=== PATIENT | male | born 1970 ===

== ENCOUNTER 2024-11-26 07:32 | Outpatient (REF) | payer BC, SELFPAY ==
--- OUTSIDE RECORDS SUMMARY | 2024-11-26 07:42 | XMS_ITS | Continuity of Care Document ---
Author Organization [employer] [facility] [employer] Address [address] [place] [address] Phone Care Team Providers Care User Experience Developer Name Role Phone Unavailable Unavailable Unavailable Allergies, [...] Location Reason(s) For Visit Diagnoses Date Provider [facility], [address], [place], [place], [id number], tel:[phone] [facility] No Information No Information [facility], [address], [place], [place], [id number], [place] tel:[phone] [facility] No Information No Information [facility], [address], [place], [place], [id number], [place] tel:[phone] [facility] No Information Bertrand Feliz. [address] [facility], [place], [address], . tel:[phone] [facility], [address], [place], [place], [id number], tel:[phone] [facility] No Information Luis Sandi. [facility], [place], [place], [id number], . tel:[phone] Family History Family Member Type Diagnosis Age At Onset No Information Payers Payer name Insurance type Covered alliance party ID jessica felipe(s) [facility] [id number] Social History Type Description Quantity Date Captured Comments Sex Male Smoking Status No Information Chief Complaint And Reason For Visit No Information History Of Present Illness Encounter Date Complaint History Of Prese nt Illness No Information Instructions Date Instruction Additional Infor mation No Information Assessments Type Assessment Date No Information
--- OUTSIDE RECORDS SUMMARY | 2024-11-26 07:42 | XMS_ITS | Data Portability ---
Author Organization [facility] Service Address [address] [place] [address] Assessment Encounter Date Assessment Date Assessment LastModified by Organization Details LastModified Time 04/11/2024 04/11/2024 [address] [place] [id number] (CARDIOLOGY TECH) MDM MODERATE MUST MEET 2 OUT OF 3 ELEMENTS: PROBLEMS, DATA OR RISK ELEMENT 1: PROBLEMS ADDRESSED 1 OR MORE CHRONIC ILLNESS WITH EXACERBATION OR 2 OR MORE STABLE CHRONIC ILLNESSES OR 1 UNDIAGNOSED NEW PROBLEM OR 1 ACUTE ILLNESS W/SYMPTOMS OR 1 ACUTE COMPLICATED INJURY ELEMENT 2: DATA MUST MEET 1 OF 3 CATEGORIES CATEGORY 1: REVIEW OF PRIOR EXTERNAL NOTES, REVIEW OF RESULTS, ORDERING OF EACH TEST, ASSESSMENT REQUIRING INDEPENDENT HISTORIAN OR CATEGORY 2: INDEPENDENT INTERPRETATION OF TESTS BY ANOTHER PHYSICIAN OR SPECIALIST OR CATEGORY 3: DISCUSSION OF MGT OR TEST INTERPRETATION W/EXTERNAL PHYSICIAN OR SPECIALIST ELEMENT 3: RISK RISK OF COMPLICATIONS AND/OR MORBIDITY OR MORTALITY OF PATIENT MANAGEMENT PROVIDER MUST THOROUGHLY DOCUMENT EACH ELEMENT THAT IS COVERED Not available 04/11/2024 14:40:42 Plan of Treatment Reminders Order Date Submit Date Provider Last Modified By Organization Details Last Modified Time Details Appointments FOLLOW UP 15 2024 11:30A M DR BYRNES Not available Not available Not available Lab CMP, serum or plasma [address], [address], 07/14/2022 17:19:19 lipid panel, blood 2021 022 [facility] [place], [address] [place] [address], [id number], 07/14/2022 17:19:19 CBC w/ auto diff 2021 022 [facility] [place] [address] [place] [address], [address], 07/14/2022 17:19:19 PSA, serum or plasma 2021 022 [facility] [place] [address] [place] [address], [id number], 07/14/2022 17:19:19 vitamin D, 25-hydrox y, total, serum 2021 022 [facility] [place], [address] [place] [address], [address], 07/11/2022 12:15:22 TSH, serum or plasma 2021 022 [facility] [place] [address] [place] [address], [address], 07/14/2022 17:19:19 CMP, serum or plasma 2022 023 [facility] [place] [address] [place] [address], [address], 02/02/2023 11:04:38 TSH, serum or plasma 2022 023 [facility] [place], [address] [place] [address], [address], 01/26/2023 11:58:06 CMP, serum or plasma 2022 023 [facility] [place] [address] [place] [address], [address], 07/25/2023 12:11:11 TSH + T4, serum 2022 023 [facility] [place] [address] [place] [address], [address], 07/25/2023 12:11:11 TSH, serum or plasma 2022 023 [facility] [place], [address] [place], [address], 05/07/2023 14:25:21 lipid panel, blood 2022 023 [facility] [place], [address] [place], [address], 05/07/2023 14:25:21 Referral None recorded. Procedures None recorded. Surgeries None recorded. Imaging CT, heart, w/o contrast, w/ coronary calcium score - NOT REQUIRED Procedure codes: 79390Iiat Reference #: [id number] 9Resoluti on: Completed on 4 at 02:15 pm. Call ref #[id number] 69. 2023 024 [facility], [address] [place] [address], [id number], 04/21/2024 09:00:52 Medication Orders None recorded. Patient TargetsNo targets recorded. Patient Instructions Encounter Date Encounter Id Patient Instructions Last Modified By Organization Details Last Modified Time 05/07/2023 [id number] high cholesterol : care instructions Not available 05/07/2023 14:23:21 04/11/2024 [id number] high cholesterol : care instructions Not available 04/11/2024 14:42:32 hypothyroidism: care instructions Not available 04/11/2024 14:42:32 Reason for Referral None Reported. Results Created Date Observation Date Name Description Value Unit Range Abnormal Flag Note LastModifiedBy Organization Detail LastModifiedTime 05/13/20 24 05/13/2024 CT, heart , w/o contr ast, w/ coron phani calci um score No observ ation record ed. [facility] [address] [facility] [address], [place], [address], 05/14/2024 11:57:10 05/22/20 24 2024 exerc ise stres s test No observ ation record ed. [facility] [address], [place], [address], 05/22/2024 18:45:36 07/16/20 24 07/16/2024 pharm acolo gic nucle ar stres s test No observ ation record ed. [email or web address] [address], [place], [address], 07/18/2024 09:08:30 Result Notes None recorded. Problems Name Problem SNOMED Code Status Onset Date Resolution Date Notes Provider Name and Address Organization Details Recorded Time Systolic murmur 79887899 Active 2020 Not Available [facility] 3 13:46:50 Hyperten sive disorder 36432942 Completed 202004/11/2024 Art Byrnes DO [address] [place] [address], [address], [facility] 4 14:41:04 Hypothyr oidism 86436914 Active 2020 Not Available [facility] 3 13:46:50 Hyperlip idemia 86909198 Active 2020 Not Available [facility] 3 13:46:50 Hernia of abdomina l cavity 32216317 Active 2020 Not Available [facility] 3 13:46:50 Multiple lipomata 275631009 Completed 202004/11/2024 Art Byrnes, [address] [place], [address], [facility] 4 14:41:32 COVID-19 094085937 Active 2020 Not Available [facility] 3 13:46:50 Sciatica 86417516 Active 2020 Not Available [facility] 3 13:46:50 Liver function tests outside referenc e range 306774926 Completed 202004/11/2024 Art Byrnes DO [address] [place], [address], [facility] 4 14:41:11 Dyspnea 239456261 Active 2020 Not Available [facility] 3 13:46:50 Tinnitus 07504108 Active 2020 Not Available [facility] 3 13:46:50 Steatosi s of liver 395037376 Completed 202004/11/2024 Art Byrnes, DO [address] [place] [address], [address], [facility] 4 14:41:20 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 Procedures Surgical History Date Name Laterality Status Provider Name and Address Organization Details Recorded Time 9 Colonoscopy completed [facility] 03/21/2021 10:06:46 Knee arthroscopy/lucy carla completed [facility] 03/21/2021 10:08:12 Imaging Results Imaging Date Name Status LastModified by Organization Details LastModified Time 05/13/2024 CT, heart, w/o contrast, w/ coronary calcium score completed [facility] [address] [facility] [address], [place], [address], 05/14/2024 11:57:10 2024 exercise stress test completed [address] [facility] [address], [place], [address], 05/22/2024 18:45:36 07/16/2024 pharmacologic nuclear stress test completed [facility] [address] [facility], [place], [address], 07/18/2024 09:08:30 Procedure Notes None recorded. Medical Equipment None Reported. Allergies Allergen ID Allergen Name Allergen Category Reaction Reaction Severity Criticality Documentation Date Start Date Code Code System Note Provider Name and Address Organization Details Recorded Time 4560 poppy seed oil food anaphylax is Not available Not available 03/23/2021 70674 99 RxNorm Art Byrnes, DO [address] [place], [address], [facility] 11:21:17 4561 macadamia oil food anaphylax is Not available Not available 03/23/2021 42759 56 RxNorm Art Byrnes, DO [address] [place], [address], [facility] 11:21:34 Medications Name Sig Start Date Stop Date Status Note LastModified by Organization Details LastModified Time atorvastati n 80 mg tablet Take 1 tablet every day by oral route for 90 days. 2021 active Not Available Not Available Not Avai lable metoprolol tartrate 100 mg tablet TAKE 1 TABLET BY MOUTH TWICE A DAY 05/07 completed Not Available Not Available Not Available atenolol 25 mg tablet TAKE 1 TABLET EVERY DAY BY ORAL ROUTE 02/13 completed Not Available Not Available Not Available chlorthalid one 25 mg tablet Take 1 tablet every day by oral route for 90 days. 04/04 completed Not Available Not Available Not Available spironolact one 25 mg tablet TAKE 1 TABLET BY MOUTH EVERY DAY active Not Available Not Available No t Available levothyroxi ne 75 mcg tablet Take 1 tablet(s) every day by oral route. 2024 active Not Available Not Available Not Avai lable amlodipine 10 mg tablet TAKE 1 TABLET BY MOUTH EVERY DAY 05/07 completed Not Available Not Available Not Available omeprazole 20 mg capsule,del ayed release TAKE 1 CAPSULE BY MOUTH EVERY DAY 2023 active Not Available Not Available Not Avai lable Baby Aspirin 81 mg chewable tablet Chew 1 tablet every day by oral route. active Not Available Not Available No t Available lisinopril 40 mg tablet TAKE 1 TABLET BY MOUTH EVERY DAY 05/07 completed Not Available Not Available Not Available doxycycline hyclate 100 mg tablet Take 1 tablet twice a day by oral route for 10 days. 02/13 completed Not Available Not Available Not Available spironolact one 50 mg tablet TAKE 1 TABLET BY MOUTH TWICE A DAY 05/07 completed Not Available Not Available Not Available Vitamin D 50,000 unit capsule Take 1 capsule every week by oral route. 01/26 completed Not Available Not Available Not Available ProAir HFA 90 mcg/actuati on aerosol inhaler Inhale 2 puffs every 4 hours by inhalatio n route as needed. 04/11 completed Not Available Not Available Not Available Vitals Date Recorded Body height Systolic blood pressure Diastolic blood pressure Systolic blood pressure Diastolic blood pressure Provider Name and Address Organization Details Last Updated DateTime 1 175.26 cm 140 mm[Hg] 82 mm[Hg] 136 mm[Hg] 80 mm[Hg] Sugey Hurd [facility] 1 11:04:44 Date Recorded Body height Body mass index (BMI) Body weight Heart rate Oxygen saturation Oxygen saturation in Arterial blood by Pulse oximetry Systolic blood pressure Diastolic blood pressure Provider Name and Address Organization Details Last Updated DateTime 2 176.53 cm 35.3 kg/m2 829621. 43 g 61 /min 99 % 99 % 118 mm[Hg] 70 mm[Hg] Miranda Fuller [facility] 2 11:56:42 Date Recorded Body height Body mass index (BMI) Body weight Heart rate Oxygen saturation Oxygen saturation in Arterial blood by Pulse oximetry Systolic blood pressure Diastolic blood pressure Provider Name and Address Organization Details Last Updated DateTime 3 176.53 cm 35.7 kg/m2 459925. 85 g 65 /min 95 % 95 % 138 mm[Hg] 92 mm[Hg] Art Byrnes, DO [address] [place], [address] , [facility] 3 11:21:49 Date Recorded Body height Body mass index (BMI) Body weight Heart rate Oxygen saturation Oxygen saturation in Arterial blood by Pulse oximetry Systolic blood pressure Diastolic blood pressure Provider Name and Address Organization Details Last Updated DateTime 3 176.53 cm 29.5 kg/m2 67554.2 5 g 79 /min 97 % 97 % 110 mm[Hg] 80 mm[Hg] Aliza Oneill [facility] 3 13:45:02 Date Recorded Body height Body mass index (BMI) Body weight Heart rate Oxygen saturation Oxygen saturation in Arterial blood by Pulse oximetry Systolic blood pressure Diastolic blood pressure Provider Name and Address Organization Details Last Updated DateTime 4 176.53 cm 27.2 kg/m2 89205.4 9 g 65 /min 97 % 97 % 116 mm[Hg] 70 mm[Hg] Laura Randall [facility] 4 14:20:36 Social History Question Answer Notes LastModified by Organizat ion Details LastModified Time Tobacco Smoking Status [facility]/21/2021 10:09:22 What Is Your Level Of Alcohol Consumption? Occasional Weekend- Social Drinker Information not available 03/23/2021 What Is Your Level Of Caffeine Consumption? Moderate Information not available 03/23/2021 What Was The Date Of Your Most Recent Tobacco Screening? 05/07/2023 [email or web address] Information not available 05/07/2023 Do You Use Any Illicit Or Recreational Drugs? No [email or web address] Information not available 07/11/2022 Do You Or Have You Ever Used Any Other Forms Of Tobacco Or Nicotine? No [email or web address] Information not available 05/07/2023 Sex: Unknown Functional Status Question Answer Note LastModified by Organization D etails LastModified Time What is your exercise level? Moderate Information not available 03/23/2021 Mental Status None recorded. Family History Relationship Description Onset Age of this Age Resolved Age Notes LastModified by Organization Details LastModified Time Father Asthma [email or web address] Not available 0 03/21/2021 10:07:01 Father Acute stroke [email or web address] Not a vailable 04/11/2024 14:04:57 Father Hypercholest erolemia tbalicki Not available 2020 10:10:43 Father Transient gluten intolerance [email or web address] Not available 0 04/11/2024 14:04:57 Father Stented coronary artery [email or web address] Not available 14:04:58 Maternal Grandfather Diabetes mellitus [email or web address] Not available 2020 10:07:24 Mother Hypertensive disorder [email or web address] Not available 2020 10:07:40 Brother Transient gluten intolerance [email or web address] Not available 0 04/11/2024 14:04:58 Maternal Grandmother Hypercholest erolemia tbalicki Not available 2020 10:11:52 Paternal Grandfather Myocardial infarction [email or web address] Not available 03/21 10:12:14 Paternal Grandfather Diabetes mellitus [email or web address] Not available 2020 10:12:24 Medical History No medical history recorded. Immunizations Vaccine Type Date Status Note Provider Nam e and Address Organization Details Recorded Time zoster recombinant 1 completed [facility]hya [facility] 05/07/2023 13:38:23 COVID-19, mRNA, LNP-S, PF, 30 mcg/0.3 mL dose 1 completed Sandhya [facility] 05/07/2023 13:38:23 zoster, unspecified formulation 2 completed Sandhya [facility] 05/07/2023 13:38:23 COVID-19, mRNA, LNP-S, PF, 30 mcg/0.3 mL dose 2 completed Sandhya [facility] 05/07/2023 13:38:23 Influenza, split virus, quadrivalent, preservative 2 completed Sandhya [facility] 05/07/2023 13:38:22 [facility]ap 4 [facility] 09:00:50 Hep B, unspecified formulation 4 completed Stephenluana Byrnes null, [facility] 02/11/2024 09:01:03 Tdap 5 completed Sugey Vannessa null, [facility] 03/21/2021 10:05:02 zoster recombinant 9 completed Sandhyasa Velazquez dkaota, [facility] 05/07/2023 13:38:22 Past Encounters Encounter ID Performer Location Encounter Start Date Encounter Closed Date Diagnosis/Indication Diagnosis SNOMED-CT Code Diagnosis ICD10 Code Diagnosis Note [id number] [facility] [address] [facility] [address] 03/23/2021 11:07:42 03/23/2021 11:55:06 Essential hypertension 39017830 I10 will need renew of his meds noted that he does snore but does not wish to have sleep study Hypothyroidism 33165167 E03.9 thyroid lab is needed Hyperlipidemia 93352761 E78.5 willl get lipid profile [id number] [facility] [address] [facility],[place] [address] 07/20/2021 10:25:41 07/20/2021 11:50:[id number] [facility] [address] [facility],[place] [address] 07/11/2022 11:50:44 07/11/2022 12:57:35 Active or passive immunization 002360489 Z23 utd Adult heal th examination 065059819 Z00.00 doing wellexerci sing daily will need for fbw [id number] [facility] [address] [facility] [address],[place] [address] 01/26/2023 11:10:46 01/26/2023 14:09:35 Hypertensive disorder 43538982 I10 bp remains uncontroll ed will refer Hypothyroidism 74074027 E03.9 thyroid lab is needed Liver func tion tests outside reference range 269637587 R94.[id number] [facility] [address] [facility],[place] [address] 05/07/2023 13:38:07 05/07/2023 14:29:12 Hyperlipidemia 52101433 E78.5 will get lipid profile Liver func tion tests outside reference range 981597894 R94.5 now nowrmal and stable Hypertensive disorder 38 990480 I10 doing fantastic now off alll bp meds and feels good will stop the chlorthali done Hypothyroidism 36744629 E03.9 thyroid lab is needed Liver enzy mes level above reference range 866338657 R74.01 gloria rechk in the fall [id number] Art Andrews Abdiazizefra [facility] [address] [facility],[place] [address] 04/11/2024 14:03:24 04/11/2024 14:48:46 Depression screening 937175654 Z13.31 SCREENING NEGATIVE Hypothyroidism 48195317 E03.9 thyroid lab is needed Hyperlipidemia 22761874 E78.5 will get lipid profile Health Concerns Section Related Observation LastModified by Organization Detai ls LastModified Time None Recorded Concern Status LastModified by Organization Details LastModified Time None Recorded Advance Directives Directive None Recorded Payers Encounter Date Sequence Insurance Name Policy Number Policy Plaza Covered Member ID Plaza Member ID Guarantor Name 07/20/2021 1 [employer] Neel Colin [id number] Neel Colin 07/11/2022 1 [employer] Neel Colin [id number] Neel Colin 01/26/2023 1 [employer] Neel Colin [id number] Neel Colin 05/07/2023 1 [employer] Neel Colin [id number] Neel Colin 04/11/2024 1 [place] Neel Colin [id number] Neel Colin Notes Date Note Type Note Provider Name and Address Organization Details Recorded Time 2 text/htm l Annual WellnessReported bypatient.Diet and Nutrition:healthy diet Fracture Risk:no history of fractures; no recent explained fracture; no sudden unexplained fractures; no previous musculoskeletal injuries Physical Activity:exercises on a regular basis; recent increase in physical activity; good physical condition Additional Lifestyle Factors:no tobacco use; no alcohol intake; stopped drinking alcohol Depression Risk:never feels sad, empty, or tearful; no loss of interest in activities; no significant changes in weight; no sleep disturbances or insomnia; no agitation; no loss of energy; no feelings of worthlessness or guilt; no thoughts of suicide; no history of depression; no history of mood disorders Hearing:no loss of hearing Vision:no vision problems here for his cpe doing well Art ByrnesDO [address] [place] [address], [address], [facility] 07/11/2022 12:14:16 3 text/htm l Hypertension F/UReported bypatient.Medications:clifford rodriguez medications as directed; no side effects from medication Lifestyle:regular exercise; limiting/avoiding salt; compliant with low salt diet Associated Symptoms:no dizziness; no lightheadedness; no chest pain; no shortness of breath; no palpitations; no edema; no calf pain with exertion; no headache here for rechk doing well overallstates he is active having a hard time losing wgthe is exercising a lot and eating a better dietrelates despite all this he is not dropping any wgtdiscussed this in detailnoted most recent lab showed a glucose at 124 fasting Art ByrnesDO [address] [place] [address], [address], [facility] 01/26/2023 11:59:13 3 text/htm l has lost about 50lbs in the [facility] etoh calorie count works outliver enzymes have now normalizedleg swelling is gone Art ByrnesDO [address] [place] [address], [address], [facility] 05/07/2023 14:24:16 4 text/htm l Care Management - HypertensionReported bypatient.Notes:no more meds here for radha has lost a total of 70 lbs doing well working outeating path intelligence ccp n o sob Art Andrews DO George [address] [place] [address], [address], [facility] 04/11/2024 14:44:20
--- OUTSIDE RECORDS SUMMARY | 2024-11-26 07:42 | XMS_ITS | Encounter Summary ---
Author Organization [facility], Address [address] [place] [address] Phone Care Team Providers Care Decorator Consultant Name Role Phone Art Vazquez DO Primary Care Provider [phone] Reason for Visit * Reason Comments Med Refill Encounter Details Date Type Department Care Team (Late st Contact Info) Description 02/11/2022 Refill [facility] [address] [facility] [address] [place] [address] Santos Recinos MD [address] [place] [address] Social History Tobacco Use Types Packs/Day Years Used Date Smoking Tobacco: Never Sex and Gender Information Value Date Recorded Sex Assigned at Not on file Legal Sex Male 4:08 PM EDT Gender Identity Not on file Sexual Orientation Not on file documented as of this encounter Plan of Treatment Not on file documented as of this encounter Visit Diagnoses Not on filedocumented in this encounter Care Teams Decorator Consultant Relationship Specialty Start Date End Date Art Vazquez DO [address] [address] PCP - General Internal Medicine 08/01/21 documented as of this encounter
--- OUTSIDE RECORDS SUMMARY | 2024-11-26 07:42 | XMS_ITS | Encounter Summary ---
Author Organization [facility] [place], Address [address] [place] [address] Phone Care Team Providers Care President [employer] Name Role Phone Art Vazquez DO Primary Care Provider [phone] Reason for Visit * Reason Comments Med Refill Encounter Details Date Type Department Care Team (Late st Contact Info) Description 08/02/2022 Refill [facility] [address] [place] [address] Santos Recinos MD [address] [place] [place] [phone] Social History Tobacco Use Types Packs/Day Years [...] on filedocumented in this encounter Care Teams President [employer] Relationship Specialty Start Date End Date Art Vazquez DO [address] [facility] [place] [address] PCP - General Internal Medicine 08/01/21 documented as of this encounter
[2024-11-26 14:41] LABS: Alanine Aminotransferase 44 U/L (0-40); Albumin Level 4.1 g/dL (3.5-5.0); Alkaline Phosphatase 89 U/L (39-117); Anion Gap 11 (12-20); Aspartate Amino Transferase 43 U/L (5-37); Bilirubin Total 0.5 mg/dL (0.0-1.0); Blood Urea Nitrogen 20 mg/dL (9-16); Calcium 8.6 mg/dL (8.4-10.2); Carbon Dioxide 28 mmol/L (22-29); Chloride 107 mmol/L (96-108); Cholesterol 193 mg/dL (<200); Estimated Glomerular Filt Rate > 60; Glucose Random 81 mg/dL (60-115); HDL Cholesterol 49 mg/dL (>40); LDL Cholesterol Calculated 126 mg/dL (<100); Potassium 4.6 mmol/L (3.3-5.1); Sodium 141 mmol/L (135-145); Total Protein 6.8 g/dL (6.5-8.0); Triglycerides 91 mg/dL (<150)
[2024-11-26 14:57] LABS: Thyroid Stimulating Hormone 1.82 uIU/mL (0.32-4.0)
== END 2024-11-26 07:33 | disposition home or self-care (01) ==
LOC: HO.MANLDS 07:32
PROVIDERS: Visit Provider Internal Medicine
DX: E03.9 Hypothyroidism, unspecified (principal); E78.5 Hyperlipidemia, unspecified
CPT/HCPCS: 36415; 80053; 80061; 84436; 84443

== ENCOUNTER 2025-05-20 07:31 | Outpatient (REF) | payer BC, SELFPAY ==
--- OUTSIDE RECORDS SUMMARY | 2007-02-14 08:51 | XMS_ITS | Continuity of Care Document ---
Author Organization [employer] Address [address] [place] [address] Phone Care Team Providers Care Dog Catcher Name Role Phone Unavailable Unavailable Unavailable Allergies, Adverse Reactions, Alerts Substance Reaction Status Criticality No Known Drug Allergies Active No I nformation Medications Medication Instructions Dosage Effective Dates (start - stop) Status Comments Lipitor 40 mg Tab Take one tablet by mouth daily - Active LEVOTHYROXINE SODIUM 50MCGTABLET Take one tablet by mouth daily - Active Tricor 145 mg Tab Take one tablet by mouth daily - Active Fish Oil Concentrate 1,000 mg Cap Take one tablet by mouth daily - Active Multivitamin Tab Take one tablet by mouth daily - Active Advance Directives Directive Yes / No Effective Date File Name No Information Encounters Encounter Description Practice Location Reason(s) For Visit Diagnoses Date Provider [facility], [address], [place], [place], [id number], tel:[phone] [facility] No Information No Information [facility], [address], [place], [place], [id number], [place] tel:[phone] [facility] No Information No Information [facility], [address], [place], [place], [id number], [place] tel:[phone] [facility] No Information Bertrand Feliz. [address] [facility], [place], [address], . tel:[phone] [facility], [address], [place], [place], [id number], tel:[phone] [facility] No Information Annfranca Junior. [address] [place] [address], [place], [place], [id number], . tel:[phone] Family History Family Member Type Diagnosis Age At Onset No Information Payers Payer name Insurance type Covered green party ID Authoriza tion(s) No Information Social History Type Description Quantity Date Captured Comments Sex Male Smoking Status No Information Chief Complaint And Reason For Visit No Information History Of Present Illness Encounter Date Complaint History Of Prese nt Illness No Information Instructions Date Instruction Additional Infor mation No Information Assessments Type Assessment Date No Information
--- OUTSIDE RECORDS SUMMARY | 2025-05-20 07:34 | XMS_ITS | Encounter Summary ---
Author Organization [facility] Address [address] [address] Phone Care Team Providers Care Band Scroll Saw Operator Name Role Phone AbdiazizefraArt DO Primary Care Provider [phone] Reason for Referral * MRI/CAT Scan - Closed Specialty Diagnoses / Procedures Referred By Driss t Referred To Contact Radiology Diagnoses Abnormal result of other cardiovascular function study Procedures NC Stress Result for Nuclear Stress Test Stephanie Moses PA [address] [place] [address] Phone: tel: fax: Referral ID Status Reason Start Date Expiration Date Visits Re quested Visits Authorized [id number] Closed 07/16/2024 07/16/2025 1 1 Encounter Details Date Type Department Care Team (Latest Contact Info) Description 07/16/2024 Ancillary Orders Virtual Department [address] [place] [id number] Stephanie Moses PA [address] [place] [address] Abnormal result of other cardiovascular function study (Primary Dx) Social History Tobacco Use Types Packs/Day Years Used Date Smoking Tobacco: Never Smokeless Tobacco: Current Alcohol Use Standard Drinks/Week Comments Not Currently 0 (1 standard drink = 0.6 oz pur e alcohol) Education Answer Date Recorded Are you interested in more education? Not on paras e 02/09/2023 Are you concerned about learning? Not on file 02/09/2023 No 02/09/2023 No 02/09/2023 Digital Access Answer Date Recorded No 03/10/2023 No 03/10/2023 Reliable internet access at home? Not on file 03/10/2023 Device with a working camera? Not on file Sex and Gender Information Value Date Recorded Sex Assigned at Not on file Legal Sex Male 12:29 PM EDT Gender Identity Not on file Sexual Orientation Not on file documented as of this encounter Plan of Treatment Not on file documented as of this encounter Results * NC Stress Result for Nuclear Stress Test (07/16/2024 10:28 AM EDT) Max Predicted Heart Rate 165 bpm [facility] Max BP Systolic 188 mmHg [facility] Max BP Diastolic 86 mmHg [facility] Max HR 150 BPM [facility] Resting HR 65 BPM [facility] Resting BP Systolic 140 mmHg [facility] Resting BP Diastolic 80 mmHg [facility] Peak METS 20.3 METS [facility] Peak HR 150 BPM [facility] Anatomical Region Laterality Modality Heart Other 07/16/2024 9:28 AM EDT 07/16/2024 10:27 AM EDT Narrative 07/16/2024 1:09 PM EDT Stress Findings The resting heart rate was 65 BPM. The resting BP was 140/80 mmHg. A peak heart rate of 150 BPM was achieved. ECG Report Pt exercised for 17: 02 min on a ALLISON protocol achieving 20.3 METS. Test terminated due to fatigue. Baseline resting HR was 65 bpm. Max heart rate achieved was 150 bpm (90% MPHR). 1. ECG: Baseline ECG showed sinus rhythm, no significant ST or T wave abnormality, voltage criteria for LVH. With exercise there were ECG changes meeting criteria for ischemia: Up to 1.[address] depressions in V3 V 6. 2. SYMPTOMS: No chest pain or symptoms concerning for angina 3. EXERCISE PHYSIOLOGY: High functional capacity for age. Blood pressure: 140/80 at rest, 180/80 with exercise, and 172/88 on discharge from stress lab. 4. ARRHYTHMIAS: Occasional isolated PACs Conclusion: Exercise portion of nuclear stress test with ECG changes meeting criteria for ischemia. There were no symptoms concerning for angina. Nuclear images pending and will be reported separately. See attached stress report for full details. David Keith NP with Dr. Rodriguez Response to Stress The patient exercised for minutes and seconds, achieving 20.3 METS at peak exercise. Baseline blood pressure was 140/80 mmHg, and baseline heart rate was 65 bpm. The patient achieved a peak heart rate of 150 bpm, which is% of their maximum predicted heart rate. us Stephanie CLEMENTS CV NM CARDIAC Final Resul t documented in this encounter Visit Diagnoses Diagnosis Abnormal result of other cardiovascular function study- Primary Abnormal result of other cardiovascular function study documented in this encounter Care Teams Band Scroll Saw Operator Relationship Specialty Start Date End Date Art Vazquez DO [email or web address] PCP - General Internal Medicine 03/24/21 documented as of this encounter Additional Source Comments The information contained in this document represents components of the legal health record. It is not the complete legal health record.[facility]
--- OUTSIDE RECORDS SUMMARY | 2025-05-20 07:34 | XMS_ITS | Encounter Summary ---
Author Organization [facility], Address [address] [place] [address] Phone Care Team Providers Care Window Tinter Name Role Phone Art Vazquez DO Primary Care Provider [phone] Reason for Visit * Reason Comments Med Refill Encounter Details Date Type Department Care Team (Late st Contact Info) Description 08/02/2022 Refill [facility] [address] [place] [phone] Santos Recinos MD [address] [place] [phone] Social History Tobacco Use Types Packs/Day Years [...] on filedocumented in this encounter Care Teams Window Tinter Relationship Specialty Start Date End Date Art Vazquez DO [address] [facility] [place] [phone] PCP - General Internal Medicine 08/01/21 documented as of this encounter
[2025-05-20 13:37] LABS: MANUAL DIFF FLAG NO
[2025-05-20 13:46] LABS: Hematocrit 41.1 % (42.0-52.0); Hemoglobin 14.4 g/dl (14.0-18.0); Imm Gran Abs Auto 0.01 X10*3/uL (0.00-0.03); Imm Gran Pct Auto 0.2 % (0.0-0.4); Lymphocytes Absolute Auto 1.0 X10*3/uL (1.2-4.9); Mean Corpuscular HGB Conc 35.0 g/dl (31.0-36.0); Mean Corpuscular Hemoglobin 31.2 pg (27.0-33.0); Mean Corpuscular Volume 89.2 fL (80.0-98.0); NRBC Abs Auto 0.000 X10*3/uL (0.0-0.012); NRBC Pct Auto 0.0 /100WBC (0.0-0.2); Platelet Count 251 X10*3/uL (160-400); Red Blood Count 4.61 X10*6/uL (4.60-5.80); White Blood Count 4.1 X10*3/uL (4.8-10.8)
[2025-05-20 14:08] LABS: Albumin Level 4.4 g/dL (3.5-5.0); Alkaline Phosphatase 92 U/L (39-117); Anion Gap 11 (12-20); Aspartate Amino Transferase 43 U/L (5-37); Blood Urea Nitrogen 22 mg/dL (9-16); Calcium 8.8 mg/dL (8.4-10.2); Carbon Dioxide 29 mmol/L (22-29); Chloride 105 mmol/L (96-108); Cholesterol 222 mg/dL (<200); Estimated Glomerular Filt Rate > 60; HDL Cholesterol 45 mg/dL (>40); Potassium 4.3 mmol/L (3.3-5.1); Sodium 141 mmol/L (135-145); Total Protein 6.8 g/dL (6.5-8.0); Triglycerides 120 mg/dL (<150)
[2025-05-20 14:11] LABS: Prostate Specific Antigen 0.33 ng/mL (<0.05-4.0)
[2025-05-20 14:14] LABS: Alanine Aminotransferase 45 U/L (0-40)
[2025-05-20 14:31] LABS: Thyroid Stimulating Hormone 1.94 uIU/mL (0.32-4.0)
== END 2025-05-20 07:32 | disposition home or self-care (01) ==
LOC: HO.MANLDS 07:31
PROVIDERS: Visit Provider Internal Medicine
DX: Z12.5 Encounter for screening for malignant neoplasm of prostate (principal); E78.5 Hyperlipidemia, unspecified
CPT/HCPCS: 36415; 80053; 80061; 84153; 84443; 85025